=== PATIENT | female | born 2000 | race Caucasian/White ===

== ENCOUNTER 2020-11-01 08:34 | Outpatient (CLI) | payer OTHER ==
[~2020-11-01] VITALS: Ht 160 cm; Wt 73.9 kg
== END 2020-11-01 11:11 | disposition home or self-care (01) ==
LOC: GENOP 08:34
DX: O99.891 Other specified diseases and conditions complicating pregnancy (principal); M54.5 Low back pain; R10.9 Unspecified abdominal pain; O13.3 Gestational [pregnancy-induced] hypertension without significant proteinuria, third trimester; Z3A.32 32 weeks gestation of pregnancy
CPT/HCPCS: 81001; G0463

== ENCOUNTER 2020-11-30 17:29 | Inpatient (IN) | payer OTHER ==
[~2020-11-30] VITALS: Ht 160 cm; Wt 77.1 kg
[2020-11-30 19:30] LABS: HEMOGLOBIN 11.3 gm/dl (12.3-15.3); RED BLOOD COUNT 3.77 M/UL (4.00-5.10); WHITE BLOOD COUNT 11.6 K/UL (4.5-11.0)
[2020-12-02] MEDS ORDERED: COLACE100 MG PO (17:28)
[2020-12-02] MEDS ORDERED: IBUPROFEN800 MG PO (17:28)
[2020-12-03 05:49] LABS: HEMOGLOBIN 8.7 gm/dl (12.3-15.3)
[2020-12-04] MEDS ORDERED: HEMOCYTE324 MG PO (10:45)
== END 2020-12-04 15:10 | disposition home or self-care (01) | DRG 807 ==
LOC: GENOP 17:29 → OB 17:55 → GENOP 18:22 → OB 18:23
PROVIDERS: Obstetrics & Gynecology; ADMIT Obstetrics & Gynecology
PROC: 0U7C7ZZ Dilation of Cervix, Via Natural or Artificial Opening (ICD-10-PCS; principal; 2020-11-30)
PROC: 4A1HX4Z Monitoring of Products of Conception, Cardiac Electrical Activity, External Approach (ICD-10-PCS; principal; 2020-11-30)
PROC: 10E0XZZ Delivery of Products of Conception, External Approach (ICD-10-PCS; 2020-12-01)
PROC: 0HQ9XZZ Repair Perineum Skin, External Approach (ICD-10-PCS; 2020-12-01)
DX: O13.4 Gestational [pregnancy-induced] hypertension without significant proteinuria, complicating childbirth (principal); Z37.0 Single live birth; Z3A.36 36 weeks gestation of pregnancy; O36.5930 Maternal care for other known or suspected poor fetal growth, third trimester, not applicable or unspecified; Z20.822 Contact with and (suspected) exposure to COVID-19; O70.0 First degree perineal laceration during delivery
CPT/HCPCS: 36415; 51702; 81001; 85014; 85018; 85025; 90715; J2001; J2590; J2795; J7120; U0002